=== PATIENT | male | born 1950 | race Caucasian/White ===

== ENCOUNTER → 2018-06-11 | Outpatient (CLI) | payer MEDICARE ==
[~2018-06-11] MED LIST: ALBU18HF INH; ASPI500T10 PO; GLUC15006 PO; IBUP200C8 PO; MULT-717 PO; ONDA4TAB10 PO; OXYC-306 PO; VALACYCLOVIR PO; VIAGRA PO; ZOLP10TA PO
== END | disposition home or self-care (01) ==
LOC: STAR 08:47
PROVIDERS: ATTEND Surgery
DX: Z01.818 Encounter for other preprocedural examination (principal)
CPT/HCPCS: 93005

== ENCOUNTER 2018-06-16 06:27 | Day surgery (SDC) | payer MEDICARE ==
[~2018-06-16] VITALS: Ht 182.9 cm; Wt 82.5 kg
[2018-06-16] MEDS ORDERED: BUPIVACAINE 0.25% ONE (06:34)
[2018-06-16] MEDS ORDERED: LACTATED RINGERS 1,000 ML IV SCH (07:12)
[2018-06-16 07:32] VITALS: BP 119/80
[2018-06-16] MEDS ORDERED: MIDAZOLAM 1 MG/ML, 2ML ONE (08:13)
[2018-06-16] MEDS ORDERED: FENTANYL PF 100 MCG/2ML ONE ×2 (08:13→09:14)
[2018-06-16] MEDS ORDERED: OXYcodone 5 MG/5 ML ORAL.SOL UDC ONE (09:13)
[2018-06-16] MEDS ORDERED: ACETAMINOPHEN 650 MG/20.3 ML UDC ONE (09:14)
[2018-06-16] MEDS ORDERED: OXYcodone 5 MG/5 ML ORAL.SOL UDC PO PRN (09:30)
[2018-06-16] MEDS ORDERED: FENTANYL PF 100 MCG/2ML IV PRN (09:30)
[2018-06-16] MEDS ORDERED: ACETAMINOPHEN 325 MG TABLET PO PRN (09:30)
[2018-06-16] MEDS ORDERED: ALBUTEROL SULFATE 2.5 MG/3 ML NPPB PRN (09:30)
[2018-06-16] MEDS ORDERED: MEPERIDINE/PF 25MG/0.5ML IVPush PRN (09:30)
[2018-06-16] MEDS ORDERED: ONDANSETRON 2MG/ML, 2ML ONE (11:14)
[2018-06-16] MEDS ORDERED: CEFAZOLIN 1,000 MG ONE (11:14)
[2018-06-16] MEDS ORDERED: DEXAMETHASONE 4 MG/ML, 1ML ONE (11:14)
[2018-06-16] MEDS ORDERED: PROPOFOL 10 MG/ML, 20ML ONE (11:14)
[2018-06-16] MEDS ORDERED: KETOROLAC 30 MG/1 ML ONE (11:14)
== END 2018-06-16 11:50 | disposition home or self-care (01) ==
LOC: OUT 06:27
PROVIDERS: ATTEND Surgery
DX: K40.90 Unilateral inguinal hernia, without obstruction or gangrene, not specified as recurrent (principal); J45.909 Unspecified asthma, uncomplicated; Z87.891 Personal history of nicotine dependence; Z98.890 Other specified postprocedural states
CPT/HCPCS: 49505; C1781; J0690; J1100; J1885; J2250; J2405; J2704; J3010; J3490; J7120

== ENCOUNTER → 2018-12-26 | Outpatient (CLI) | payer MEDICARE | END | disposition home or self-care (01) | LOC: ROC 07:07 | PROVIDERS: ATTEND Radiology Radiation Oncology | DX: C61 Malignant neoplasm of prostate (principal) | CPT/HCPCS: G0463 ==

== ENCOUNTER → 2019-01-09 | Outpatient (CLI) | payer MEDICARE ==
[~2019-01-09] MED LIST changes: +CHOL100012 PO; +DOCU-131 PO; +OXYC5TAB2 PO; +[UNRECOGNIZED DRUG - CODE] PO
[2019-01-09 10:40] LABS: CALCIUM 9.2 mg/dL (8.5-10.1); CHLORIDE 107 mmol/L (98-107)
[2019-01-09 10:44] LABS: ALANINE AMINOTRANSFERASE 32 U/L (12-78); ALBUMIN 3.8 g/dL (3.4-5.0); ANION GAP 4 mmol/L (5-15); CREATININE 0.95 mg/dL (0.7-1.3)
[2019-01-09 10:46] LABS: ALKALINE PHOSPHATASE 83 U/L (45-117); BILIRUBIN,TOTAL 0.6 mg/dL (0.2-1.0); TOTAL PROTEIN 7.5 g/dL (6.4-8.2)
[2019-01-09 10:48] LABS: BASOPHILS # (AUTO) 0.04 x10^3/uL (0-0.1); BASOPHILS % (AUTO) 1 % (0-1); EOSINOPHILS # (AUTO) 0.07 x10^3/uL (0-0.4); EOSINOPHILS % (AUTO) 1 % (1-7); LYMPHOCYTES # (AUTO) 1.15 x10^3/uL (1-3.4); LYMPHOCYTES % (AUTO) 20 % (22-44); MD NO; MEAN CORPUSCULAR HGB CONC 34.2 g/dL (33.2-36.2); MEAN CORPUSCULAR VOLUME 93.7 fL (81-97); MEAN PLATELET VOLUME 8.1 fL (7.4-10.4); MONOCYTES # (AUTO) 0.75 x10^3/uL (0.2-0.8); MONOCYTES % (AUTO) 13 % (2-9); NEUTROPHILS # (AUTO) 3.62 x10^3/uL (1.8-6.8); NEUTROPHILS % (AUTO) 64 % (42-75); PLATELET COUNT 271 x10^3/uL (130-400); RED BLOOD COUNT 4.78 x10^6/uL (4.38-5.82); RED CELL DISTRIBUTION WIDTH 13.9 % (9.4-14.8)
== END | disposition home or self-care (01) ==
LOC: STAR 09:23
PROVIDERS: ATTEND Urology
DX: Z01.818 Encounter for other preprocedural examination (principal); C61 Malignant neoplasm of prostate
CPT/HCPCS: 36415; 80053; 85025; 93005

== ENCOUNTER 2019-01-22 08:59 | Inpatient (IN) | payer MEDICARE ==
[~2019-01-22] VITALS: Ht 182.9 cm; Wt 86.5 kg
[~2019-01-22 08:59] MED LIST changes: -DOCU-131 PO; -OXYC5TAB2 PO
[2019-01-22] MEDS ORDERED: LACTATED RINGERS 1,000 ML IV SCH (09:37)
[2019-01-22 10:08] VITALS: BP 122/76
[2019-01-22] MEDS ORDERED: GABAPENTIN 300 MG CAPSULE PO ONE (10:30)
[2019-01-22] MEDS ORDERED: SCOPOLAMINE PATCH, 1.5MG PATCH.TD72 TD ONE (10:30)
[2019-01-22] MEDS ORDERED: ACETAMINOPHEN 500 MG TABLET PO ONE (10:30)
[2019-01-22] MEDS ORDERED: MIDAZOLAM 1 MG/ML, 2ML ONE (10:53)
[2019-01-22] MEDS ORDERED: FENTANYL PF 250 MCG/5ML ONE (10:53)
[2019-01-22] MEDS ORDERED: PROPOFOL 10 MG/ML, 20ML ONE (10:53)
[2019-01-22] MEDS ORDERED: ROCURONIUM 10MG/ML,5ML ONE ×3 (10:53→14:33)
[2019-01-22] MEDS ORDERED: LIDOCAINE-MPF 2% ,5ML ONE (10:53)
[2019-01-22] MEDS ORDERED: DEXAMETHASONE 4 MG/ML, 1ML ONE ×2 (10:53)
[2019-01-22] MEDS ORDERED: CEFAZOLIN 1,000 MG ONE ×2 (10:53)
[2019-01-22] MEDS ORDERED: ONDANSETRON 2MG/ML, 2ML ONE (10:54)
[2019-01-22] MEDS ORDERED: LIDOCAINE 4%, 4 ML SYR/CANN TP ONE (10:57)
[2019-01-22] MEDS ORDERED: ROCURONIUM 10 MG/ML,10ML ONE (11:51)
[2019-01-22] MEDS ORDERED: THROMBIN 5,000 UNIT VIAL TP ONE (12:05)
[2019-01-22] MEDS ORDERED: OPIUM/BELLADONNA SUPP.RECT 16.2-60 MG ONE (12:05)
[2019-01-22] MEDS ORDERED: METOPROLOL 1 MG/ML, 5ML ONE (13:23)
[2019-01-22] MEDS ORDERED: GLYCOPYRROLATE 0.2MG/1ML, 5ML ONE (14:52)
[2019-01-22] MEDS ORDERED: FENTANYL PF 100 MCG/2ML ONE ×2 (14:55→16:14)
[2019-01-22] MEDS ORDERED: HYDROmorphone 2 MG/ML, 1ML ONE (16:14)
[2019-01-22] MEDS: FENTANYL PF 100 MCG/2ML IV PRN ×3 (16:15→16:40)
[2019-01-22] MEDS: HYDROmorphone 2 MG/ML, 1ML IVPush PRN ×2 (16:20→16:34)
[2019-01-22] MEDS ORDERED: ONDANSETRON 2MG/ML, 2ML IV PRN (16:30)
[2019-01-22] MEDS ORDERED: LORazepam 2 MG/ML, 1ML IVPush PRN (16:30)
[2019-01-22] MEDS ORDERED: MEPERIDINE/PF 25MG/0.5ML IVPush PRN (16:30)
[2019-01-22] MEDS ORDERED: ALBUTEROL/IPRATROPIUM 2.5MG/0.5MG, 3 ML NPPB PRN (16:30)
[2019-01-22] MEDS ORDERED: METOPROLOL 1 MG/ML, 5ML IV PRN (16:30)
[2019-01-22] MEDS ORDERED: OXYcodone 5 MG/5 ML ORAL.SOL UDC PO PRN (16:30)
[2019-01-22] MEDS ORDERED: morphine SULFATE 10 MG/ML, 1ML IV PRN (18:00)
[2019-01-22] MEDS ORDERED: OPIUM/BELLADONNA SUPP.RECT 16.2-60 MG PR PRN (18:00)
[2019-01-22] MEDS ORDERED: ALBUTEROL INH PRN (18:00)
[2019-01-22] MEDS: ACETAMINOPHEN 500 MG TABLET PO SCH (18:01)
[2019-01-22] MEDS: OXYcodone IR 5MG TABLET PO PRN (19:51)
[2019-01-22] MEDS: ZOLPIDEM 10MG TABLET PO PRN (19:51)
[2019-01-22] MEDS: MELATONIN 3 MG TABLET PO PRN (19:51)
[2019-01-22 20:00] VITALS: BP 138/82
[2019-01-23] VITALS: BP 128/82
[2019-01-23] MEDS: ACETAMINOPHEN 500 MG TABLET PO SCH ×4 (00:05→17:24)
[2019-01-23] MEDS: D5%-0.45NACL+KCL 20MEQ 1,000 ML IV SCH ×3 (00:17→19:26)
[2019-01-23 04:02] VITALS: BP 117/94
[2019-01-23] MEDS: OXYcodone IR 5MG TABLET PO PRN ×3 (04:58→17:23)
[2019-01-23 07:04] LABS: ANION GAP 5 mmol/L (5-15); CALCIUM 8.1 mg/dL (8.5-10.1); CHLORIDE 111 mmol/L (98-107); CREATININE 0.85 mg/dL (0.7-1.3)
[2019-01-23] MEDS: ENOXAPARIN 40 MG/0.4 ML SQ SCH (08:00)
[2019-01-23 08:48] VITALS: BP 128/72
[2019-01-23 14:07] VITALS: BP 109/68
[2019-01-23] MEDS: MELATONIN 3 MG TABLET PO PRN (19:26)
[2019-01-23] MEDS: ZOLPIDEM 10MG TABLET PO PRN (19:26)
[2019-01-23 20:46] VITALS: BP 111/68
[2019-01-24] MEDS: ACETAMINOPHEN 500 MG TABLET PO SCH ×2 (00:12→06:35)
[2019-01-24] MEDS: OXYcodone IR 5MG TABLET PO PRN ×2 (00:12→06:35)
[2019-01-24 00:57] VITALS: BP 132/85
[2019-01-24] MEDS: D5%-0.45NACL+KCL 20MEQ 1,000 ML IV SCH (02:57)
[2019-01-24] MEDS: ENOXAPARIN 40 MG/0.4 ML SQ SCH (08:00)
[2019-01-24 09:40] VITALS: BP 133/82
[2019-01-24] MEDS ORDERED: OXYC5TAB2 PO (10:52)
[2019-01-24] MEDS ORDERED: DOCU-131 PO (10:52)
== END 2019-01-24 11:10 | disposition home or self-care (01) | DRG 708 ==
LOC: OUT 08:59 → 4NOR 17:25 → OUT 17:35 → 4NOR 17:35 → DCLOUNGE 01-24 10:49
PROVIDERS: ADMIT Urology; ATTEND Urology
PROC: 8E0W4CZ Robotic Assisted Procedure of Trunk Region, Percutaneous Endoscopic Approach (ICD-10-PCS; 2019-01-22)
PROC: 0VT04ZZ Resection of Prostate, Percutaneous Endoscopic Approach (ICD-10-PCS; principal; 2019-01-22 11:30)
DX: C61 Malignant neoplasm of prostate (principal); Z87.891 Personal history of nicotine dependence
CPT/HCPCS: 36415; 80048; 85014; 85018; 86850; 86900; 88309; C1729; G0378; J0690; J1100; J1170; J1650; J2250; J2405; J2704; J3010; C1760; C1762; J3480; J7120

== ENCOUNTER 2019-01-29 08:35 | Outpatient (CLI) | payer MEDICARE ==
[~2019-01-29 08:35] MED LIST changes: +DOCU-131 PO; +OXYC5TAB2 PO
== END 2019-01-29 23:59 | disposition home or self-care (01) ==
LOC: RAD 08:35
PROVIDERS: ATTEND Urology
DX: C61 Malignant neoplasm of prostate (principal)
CPT/HCPCS: 51600; 74430; Q9958